=== PATIENT | male | born 1990 | race African-American/Black ===

== ENCOUNTER 2020-03-22 11:59 | Emergency (ER) | payer OTHER ==
[2020-03-22] MEDS ORDERED: Ativan 2 MG/1 ML VIAL ONE ×2 (12:03→12:28)
[2020-03-22] MEDS ORDERED: Zofran 4 MG/2 ML VIAL IV ONE (12:04)
[2020-03-22] MEDS ORDERED: Keppra 500 MG/5 ML*** 1,000 MG in D5w 100ML Mini Bag 100 ML 100 ML IV ONE (12:04)
[2020-03-22] MEDS ORDERED: Sodium Chloride 0.9% 1000 ML 1,000 ML IV STA (12:04)
[2020-03-22] MEDS ORDERED: Ativan 2 MG/1 ML VIAL IV ONE ×2 (12:04→12:34)
[2020-03-22 12:18] LABS: Absolute Neutrophil Ct (ANC) 5.44 (1.4-6.9); BASOPHIL % 0.4 % (0.0-0.4); Basophil (Absolute #) 0.03 (0-0.4); Eosinophil % 2.7 % (0.00-5.0); Eosinophil (Absolute #) 0.23 (0-0.5); Hematocrit 46.3 % (42-50); Hemoglobin 15.7 gm/dl (12.5-18.0); Lymphocyte (Absolute #) 2.11 (1.0-4.6); Lymphocytes % 24.7 % (24.0-44.0); Mean Cell Volume 85.6 fl (78-100); Mean Corpuscular Hgb Concent. 33.9 g/dl (32-36); Mean Platelet Volume 10.1 fl (7.5-11.0); Monocyte (Absolute #) 0.73 (0.0-1.3); Monocytes % 8.5 % (0.0-12.0); Neutrophil % 63.7 % (36.0-66.0); Platelet Count 206 K/mm3 (150-450); Red Blood Count 5.41 M/mm3 (4.1-5.6); Red Cell Distribution Width 11.9 % (11.5-14.0); White Blood Count 8.5 K/mm3 (4.0-10.5)
[2020-03-22 12:31] LABS: ALBUMIN 4.4 g/dL (3.5-5.0); ALKALINE PHOSPHATASE 74 U/L (38-126); ANION GAP 10.5 MEQ/L (5-15); BLOOD UREA NITROGEN 10 mg/dL (9-20); CHLORIDE 108 mmol/L (98-107); Calcium 9.4 mg/dL (8.4-10.2); Carbon Dioxide 25 mmol/L (22-30); Creatinine 1 0.96 mg/dL (0.66-1.25); EST GLOMERULAR FILTRATION RATE > 60.0 ML/MIN; Glucose 99 mg/dL (74-106); Potassium 4.5 mmol/L (3.5-5.1); SGOT/AST 40 U/L (17-59); SGPT/ALT 22 U/L (0-50); SODIUM 139 mmol/L (137-145); Total Protein 7.5 g/dL (6.3-8.2)
[2020-03-22] MEDS ORDERED: Zofran 4 MG/2 ML VIAL ONE (12:31)
[2020-03-22] MEDS ORDERED: Sodium Chloride 0.9% 1000 ML 1,000 ML ONE (12:31)
[2020-03-22] MEDS ORDERED: Ativan 2 MG/1 ML VIAL IM ONE (12:33)
[2020-03-22 12:35] VITALS: BP 97/81; PULSE 90; O2SAT 99
--- NOTE | 2020-03-22 12:41 | XRAY ---
Indication: Multiple seizures. Comparison: None Single AP chest demonstrates normal heart, lungs, and bony thorax.
--- NOTE | 2020-03-22 12:42 | XRAY ---
Indication: Shoulder trauma. Multiple seizures. Comparison: None 3 view right shoulder demonstrates normal heart, lungs, and bony thorax.
--- NOTE | 2020-03-22 12:44 | XRAY ---
Indication: Right periorbital contusion. Multiple seizures. Multiple contiguous axial images obtained through the head without contrast. Comparison: None Minimal right supraorbital soft tissue swelling. Normal appearing brain parenchyma, ventricles, and bony calvarium. Moderate mucosal thickening both ethmoid and lesser degree right frontal/right ethmoid sinuses. Mastoid air cells are clear. Impression: Right supraorbital soft tissue swelling and paranasal sinus disease. Remaining CT head without contrast exam is negative.
[2020-03-22 13:07] LABS: Appearance CLEAR (CLEAR); Bilirubin NEGATIVE (NEGATIVE); Blood NEGATIVE Ery/ul (0-5); Glucose NEGATIVE (NEGATIVE); Ketones NEGATIVE (NEGATIVE); Leukocyte Esterase NEGATIVE (NEGATIVE); Mucus SLIGHT /HPF (NEGATIVE); Nitrite NEGATIVE (NEGATIVE); Protein,Urine Dip NEGATIVE (Negative); RBC 0-2 /HPF (0-2); Specific Gravity 1.006 (1.005-1.025); Urobilinogen NEGATIVE mg/dL (0-1)
--- NOTE | 2020-03-22 13:09 | ERPHSYRPT ---
- History of Present Illness Time Seen by Provider: 03/22/20 12:03 Source: EMS, police Exam Limitations: clinical condition Patient Subjective Stated Complaint: Seizure Triage Nursing Assessment: Patient brought back to ED via EMS and transferred to bed with assist of 4. Patient alert to self. Patient continues to say "Sup". EMS stated patient will keep saying postictal after seizure. Patient has approximately 20 seizures since 0800. Patient has hx of seizures and was given Ativan 2mg IM at 0930 and 1030 for seizures. Patient confused saying he was driving in his car and trying to get home. Patient has small hematoma noted to right eyebrow from seizure activity at [facility]. During triage patient started seizing approx 30 seconds with O2 down to 82 Oxygen applied at 2 liters per N/C. Physician History: 29 years old incarcerated male with history of seizures on multiple medications is brought in the ER with multiple seizures since 9:30 AM today where he fell and hit his head as well but the swelling on the right forehead. He has been given Ativan twice prior to arrival. Patient is postictal on presentation, moving all 4 extremities. Per EMS he was complaining of right shoulder pain. No recent fever chills or cough reported. History is limited. Timing/Duration: today, sudden, improved Severity: moderate Modifying Factors: Improves With: other Allergies/Adverse Reactions: Penicillins Allergy (Verified 03/22/20 12:21) Home Medications: Lamotrigine [Lamictal] 1 tab PO BID 03/22/20 [History] Levetiracetam [Keppra] 1 tab PO BID 03/22/20 [History] Oxcarbazepine [Trileptal] 1 tab PO BID 03/22/20 [History] Hx Influenza Vaccination/Date Given: (unknown) Hx Pneumococcal Vaccination/Date Given: (unknown) Immunizations Up to Date: (unknown) Travel Risk - International Travel Have you traveled outside of the country in past 3 weeks: No - Coronavirus Screening Are you exhibiting any of the following symptoms?: No Close contact with a COVID-19 positive Pt in past 14-21 Days: No - Review of Systems Constitutional: No Symptoms Eyes: No Symptoms Ears, Nose, & Throat: No Symptoms Respiratory: No Symptoms Cardiac: No Symptoms Abdominal/Gastrointestinal: No Symptoms Genitourinary Symptoms: No Symptoms Musculoskeletal: Joint Pain Skin: No Symptoms Neurological: Seizure Hematologic/Lymphatic: No Symptoms Immunological/Allergic: No Symptoms - Past Medical History Other Medical History: seizures - Past Surgical History Other Surgical History: Unknown - Social History Smoking Status: Unknown if ever smoked Exposure to second hand smoke: (unknown) Drug Use: none Patient Lives Alone: No ([facility]) - Nursing Vital Signs Nursing Vital Signs: Initial Vital Signs Temperature 98.4 F 03/22/20 12:01 Pulse Rate 93 H 03/22/20 12:01 Respiratory Rate 19 03/22/20 12:01 Blood Pressure 127/66 03/22/20 12:01 O2 Sat by Pulse Oximetry 100 03/22/20 12:01 Pain Scale Pain Intensity 0 - Physical Exam General Appearance: no apparent distress, alert Eye Exam: PERRL/EOMI, eyes nml inspection, other (Swelling and tenderness right upper lateral orbital ridge/forehead. No step in deformity.) Ears, Nose, Throat Exam: normal ENT inspection, TMs normal, pharynx normal Neck Exam: normal inspection, non-tender, supple, full range of motion, other (No step-off deformity. No midline tenderness at all.) Respiratory Exam: normal breath sounds, lungs clear Cardiovascular Exam: regular rate/rhythm, normal heart sounds Gastrointestinal/Abdomen Exam: soft, normal bowel sounds, No tenderness Back Exam: normal inspection, normal range of motion, No CVA tenderness Extremity Exam: normal inspection, normal range of motion, pelvis stable Neurologic Exam: alert, sensation nml, confusion, No oriented x 3, No motor deficits, No motor weakness, No facial droop Skin Exam: normal color SpO2 Interpretation: normal SpO2: 99 O2 Delivery: Room Air - Course Nursing assessment & vital signs reviewed: Yes EKG Interpreted by Me: RATE ([id number]), Sinus Rhythm, NORMAL AXIS, NORMAL INTERVALS, NORMAL QRS Ordered Tests: Active Orders 24 hr Category Date Time Status Chopped Strand Operator STAT Care 03/22/20 12:05 Active EKG-ER Only STAT Care 03/22/20 12:04 Active IV Insertion STAT Care 03/22/20 12:04 Active NPO (ED) STAT Care 03/22/20 12:04 Active Oxygen-ED Only Nasal Cannula 2 lpm Care 03/22/20 12:04 Active POCT Glucose Check STAT Care 03/22/20 12:04 Active CHEST 1 VIEW (PORTABLE) Stat Exams 03/22/20 12:05 Completed HEAD WITHOUT CONTRAST [CT] Stat Exams 03/22/20 12:05 Completed SHOULDER Stat Exams 03/22/20 12:34 Completed BLOOD CULTURE Stat Lab 03/22/20 13:15 Received CBC W DIFF Stat Lab 03/22/20 12:00 Completed CMP Stat Lab 03/22/20 12:00 Completed ETHYL ALCOHOL Stat Lab 03/22/20 13:13 Completed Lactic Acid Stat Lab 03/22/20 12:04 Completed UA W/RFX UR CULTURE Stat Lab 03/22/20 13:04 Completed Urine Triage Profile Stat Lab 03/22/20 13:04 Completed Medication Summary Discontinued Medications Generic Name Dose Route Start Last Admin Trade Name Freq PRN Reason Stop Dose Admin Sodium Chloride 1,000 mls @ 999 mls/hr 03/22/20 12:04 03/22/20 12:32 Sodium Chloride 0.9% 1000 Ml IV 03/22/20 13:04 999 mls/hr .Q1H1M STA Administration Levetiracetam 1,000 mg/ 110 mls @ 400 mls/hr 03/22/20 12:04 03/22/20 12:41 Dextrose IV 03/22/20 12:20 400 mls/hr STAT ONE Administration Sodium Chloride Confirm 03/22/20 12:31 Sodium Chloride 0.9% 1000 Ml Administered 03/22/20 12:32 Dose 1,000 mls @ ud .ROUTE .STK-MED ONE Lorazepam Confirm 03/22/20 12:03 Ativan 2 Mg/1 Ml Vial Administered 03/22/20 12:04 Dose 2 mg .ROUTE .STK-MED ONE Lorazepam 2 mg 03/22/20 12:04 03/22/20 12:18 Ativan 2 Mg/1 Ml Vial IV 03/22/20 12:05 2 mg STAT ONE Administration Lorazepam Confirm 03/22/20 12:28 Ativan 2 Mg/1 Ml Vial Administered 03/22/20 12:29 Dose 2 mg .ROUTE .STK-MED ONE Lorazepam 2 mg 03/22/20 12:33 03/22/20 12:34 Ativan 2 Mg/1 Ml Vial IM 03/22/20 12:34 Not Given STAT ONE Lorazepam 2 mg 03/22/20 12:34 03/22/20 12:35 Ativan 2 Mg/1 Ml Vial IV 03/22/20 12:35 2 mg STAT ONE Administration Ondansetron HCl 4 mg 03/22/20 12:04 03/22/20 12:32 Zofran 4 Mg/2 Ml Vial IV 03/22/20 12:05 4 mg STAT ONE Administration Ondansetron HCl Confirm 03/22/20 12:31 Zofran 4 Mg/2 Ml Vial Administered 03/22/20 12:32 Dose 4 mg .ROUTE .STK-MED ONE Lab/Rad Data: Laboratory Result Diagrams 03/22/20 12:00 03/22/20 12:00 Laboratory Results 03/22/20 03/22/20 03/22/20 Range/Units 13:13 13:04 13:04 WBC (4.0-10.5) K/mm3 RBC (4.1-5.6) M/mm3 Hgb (12.5-18.0) gm/dl Hct (42-50) % MCV (78-100) fl MCH (26-32) pg MCHC (32-36) g/dl RDW (11.5-14.0) % Plt Count (150-450) K/mm3 MPV (7.5-11.0) fl Gran % (36.0-66.0) % Eos # (Auto) (0-0.5) Absolute Lymphs (auto) (1.0-4.6) Absolute Monos (auto) (0.0-1.3) Lymphocytes % (24.0-44.0) % Monocytes % (0.0-12.0) % Eosinophils % (0.00-5.0) % Basophils % (0.0-0.4) % Absolute Granulocytes (1.4-6.9) Basophils # (0-0.4) Sodium (137-145) mmol/L Potassium (3.5-5.1) mmol/L Chloride (98-107) mmol/L Carbon Dioxide (22-30) mmol/L Anion Gap (5-15) MEQ/L BUN (9-20) mg/dL Creatinine (0.66-1.25) mg/dL Estimated GFR ML/MIN Glucose (74-106) mg/dL Lactic Acid (0.4-2.0) Calcium (8.4-10.2) mg/dL Total Bilirubin (0.2-1.3) mg/dL AST (17-59) U/L ALT (0-50) U/L Alkaline Phosphatase (38-126) U/L Serum Total Protein (6.3-8.2) g/dL Albumin (3.5-5.0) g/dL Urine Color STRAW (YELLOW) Urine Appearance CLEAR (CLEAR) Urine pH 7.0 (5-6) Ur Specific [place] 1.006 (1.005-1.025) Urine Protein NEGATIVE (Negative) Urine Ketones NEGATIVE (NEGATIVE) Urine Blood NEGATIVE (0-5) Fabio/ul Urine Nitrite NEGATIVE (NEGATIVE) Urine Bilirubin NEGATIVE (NEGATIVE) Urine Urobilinogen NEGATIVE (0-1) mg/dL Ur Leukocyte Esterase NEGATIVE (NEGATIVE) Urine WBC (Auto) NONE (0-5) /HPF Urine RBC (Auto) 0-2 (0-2) /HPF U Epithel Cells (Auto) NONE (FEW) /HPF Urine Bacteria (Auto) NONE (NEGATIVE) /HPF Urine Mucus (Auto) SLIGHT (NEGATIVE) /HPF Urine Culture Reflexed NO (NO) Urine Glucose NEGATIVE (NEGATIVE) mg/dL Urine Opiates Level NEGATIVE (NEGATIVE) Ur Methadone NEGATIVE (NEGATIVE) Urine Barbiturates NEGATIVE (NEGATIVE) Ur Phencyclidine (PCP) NEGATIVE (NEGATIVE) Urine Amphetamine NEGATIVE (NEGATIVE) U Benzodiazepine Level NEGATIVE (NEGATIVE) Urine Cocaine NEGATIVE (NEGATIVE) Urine Marijuana (THC) NEGATIVE (NEGATIVE) Ethyl Alcohol < 10 (0-10) mg/dL 03/22/20 03/22/20 03/22/20 Range/Units 12:04 12:00 12:00 WBC 8.5 (4.0-10.5) K/mm3 RBC 5.41 (4.1-5.6) M/mm3 Hgb 15.7 (12.5-18.0) gm/dl Hct 46.3 (42-50) % MCV 85.6 (78-100) fl MCH 29.0 (26-32) pg MCHC 33.9 (32-36) g/dl RDW 11.9 (11.5-14.0) % Plt Count 206 (150-450) K/mm3 MPV 10.1 (7.5-11.0) fl Gran % 63.7 (36.0-66.0) % Eos # (Auto) 0.23 (0-0.5) Absolute Lymphs (auto) 2.11 (1.0-4.6) Absolute Monos (auto) 0.73 (0.0-1.3) Lymphocytes % 24.7 (24.0-44.0) % Monocytes % 8.5 (0.0-12.0) % Eosinophils % 2.7 (0.00-5.0) % Basophils % 0.4 (0.0-0.4) % Absolute Granulocytes 5.44 (1.4-6.9) Basophils # 0.03 (0-0.4) Sodium 139 (137-145) mmol/L Potassium 4.5 (3.5-5.1) mmol/L Chloride 108 H (98-107) mmol/L Carbon Dioxide 25 (22-30) mmol/L Anion Gap 10.5 (5-15) MEQ/L BUN 10 (9-20) mg/dL Creatinine 0.96 (0.66-1.25) mg/dL Estimated GFR > 60.0 ML/MIN Glucose 99 (74-106) mg/dL Lactic Acid 1.4 (0.4-2.0) Calcium 9.4 (8.4-10.2) mg/dL Total Bilirubin 0.60 (0.2-1.3) mg/dL AST 40 (17-59) U/L ALT 22 (0-50) U/L Alkaline Phosphatase 74 (38-126) U/L Serum Total Protein 7.5 (6.3-8.2) g/dL Albumin 4.4 (3.5-5.0) g/dL Urine Color (YELLOW) Urine Appearance (CLEAR) Urine pH (5-6) Ur Specific [place] (1.005-1.025) Urine Protein (Negative) Urine Ketones (NEGATIVE) Urine Blood (0-5) Fabio/ul Urine Nitrite (NEGATIVE) Urine Bilirubin (NEGATIVE) Urine Urobilinogen (0-1) mg/dL Ur Leukocyte Esterase (NEGATIVE) Urine WBC (Auto) (0-5) /HPF Urine RBC (Auto) (0-2) /HPF U Epithel Cells (Auto) (FEW) /HPF Urine Bacteria (Auto) (NEGATIVE) /HPF Urine Mucus (Auto) (NEGATIVE) /HPF Urine Culture Reflexed (NO) Urine Glucose (NEGATIVE) mg/dL Urine Opiates Level (NEGATIVE) Ur Methadone (NEGATIVE) Urine Barbiturates (NEGATIVE) Ur Phencyclidine (PCP) (NEGATIVE) Urine Amphetamine (NEGATIVE) U Benzodiazepine Level (NEGATIVE) Urine Cocaine (NEGATIVE) Urine Marijuana (THC) (NEGATIVE) Ethyl Alcohol (0-10) mg/dL - Progress Progress: improved, re-examined Progress Note: 03/22/20 13:20 Patient was postictal on presentation. He had a seizure episodes x2 over here, given Ativan and also have given her loading dose of Keppra. I have obtained CT head which is negative for any acute findings. X-ray chest and right shoulder are negative. Patient is awake alert but somewhat confused on reevaluation, moving all 4 extremities, no obvious neuro deficit.. Baseline work-up including CBC/CMP and lactate are normal. Do not know the exact cause of why is he having recurrent seizures. Since patient is incarcerated and needs to be in a locked unit, discussed with Dr. Taragno at [facility] and patient is accepted for transfer. Discussed with Dr.: Other (Sukhdeep) Will see patient in: ED Counseled pt/family regarding: lab results, diagnosis, rad results - Departure Departure Disposition: Transfer Clinical Impression: Recurrent seizures Condition: Stable Critical Care Time: Yes Critical Care Time(excluding separately billable procedures): Critical 30-74 mins Referrals: RAZA CORNELIUS MD [Primary Care Provider] -
[2020-03-22 13:21] LABS: Amphetamine,Urine NEGATIVE (NEGATIVE); Barbiturate,Urine NEGATIVE (NEGATIVE); Benzodiazepine,Urine NEGATIVE (NEGATIVE); Methadone,Urine NEGATIVE (NEGATIVE); Opiate,Urine NEGATIVE (NEGATIVE); PCP,Urine NEGATIVE (NEGATIVE); THC,Urine NEGATIVE (NEGATIVE)
[2020-03-22 13:23] LABS: Cocaine,Urine NEGATIVE (NEGATIVE)
== END 2020-03-22 14:13 | disposition short-term general hospital (02) ==
LOC: ED 11:59
DX: R56.9 Unspecified convulsions (principal); M25.511 Pain in right shoulder; S00.93XA Contusion of unspecified part of head, initial encounter; Z79.899 Other long term (current) drug therapy; R51.9 Headache, unspecified; R22.0 Localized swelling, mass and lump, head
CPT/HCPCS: 36000; 36415; 70450; 71045; 73030; 80053; 80307; 81001; 83605; 85025; 87040; 93005; 93041; 96360; 96374; 96375; 96376; 99285; 99291; J1953; J2060; J2405; G0480